=== PATIENT | male | born 1975 | race Caucasian/White ===

== ENCOUNTER 2016-06-29 11:18 | Emergency (ER) | payer OTHER ==
[2016-06-29] MEDS ORDERED: Sodium Chloride 0.9% 10 ML Syringe FLUSH PRN (11:21)
[2016-06-29] MEDS ORDERED: Sodium Chloride 0.9% 2.5 ML Syringe FLUSH PRN (11:21)
[2016-06-29] MEDS ORDERED: Sodium Chloride 0.9% 1,000 ML IV ONE (11:21)
--- NOTE | 2016-06-29 11:34 | EDM.PDOC ---
ED HPI GENERAL MEDICAL PROBLEM - General Time Seen by Provider: 06/29/16 13:14 - History of Present Illness INITIAL COMMENTS - FREE TEXT/NARRATIVE: HISTORY AND PHYSICAL: History of present illness: Patient's 41-year-old male with history of tuh-sozepxw-ngkaxfhdl diabetes we took his metformin this morning and only an apple at wo and then collapsed he did not lose complete consciousness he said he had a visual disturbance at that time he subsequently drank a boost of Mountain Dew and an energy bar on arrival here he is improved he still has generalized weakness blood sugar was 72. Review of systems: As per history of present illness and below otherwise all systems reviewed and negative. Past medical history: As per history of present illness and as reviewed below otherwise noncontributory. Surgical history: As per history of present illness and as reviewed below otherwise noncontributory. Social history: No reported history of drug or alcohol abuse. Family history: As per history of present illness and as reviewed below otherwise noncontributory. Physical exam: HEENT: Atraumatic, normocephalic, pupils reactive, negative for conjunctival pallor or scleral icterus, mucous membranes moist, throat clear, neck supple, nontender, trachea midline. Lungs: Clear to auscultation, breath sounds equal bilaterally, chest nontender. Heart: S1S2, regular, negative for clicks, rubs, or JVD. Abdomen: Soft, nondistended, nontender. Negative for masses or hepatosplenomegaly. Negative for costovertebral tenderness. Pelvis: Stable nontender. Genitourinary: Deferred. Rectal: Deferred. Extremities: Atraumatic, negative for cords or calf pain. Neurovascular unremarkable. Neuro: Awake, alert, oriented. Cranial nerves II through XII unremarkable. Cerebellum unremarkable. Motor and sensory unremarkable throughout. Exam nonfocal. Diagnostics: CBC CMP troponin PT INR chest x-ray EKG CT brain Therapeutics: IV O2 my Impression: #1 generalized weakness #2 history of [id number]-syuenlfhf diabetes #3 probable hypoglycemic episode Definitive disposition and diagnosis as appropriate pending reevaluation and review of above. - Related Data Allergies Allergy/AdvReac Type Severity Reaction Status Date / Time No Known Allergies Allergy Verified 06/29/16 11:27 Home Meds: Home Meds metFORMIN [Glucophage XR] 0 mg PO BIDMEALS 06/29/16 [History] ED ROS GENERAL - Review of Systems Review Of Systems: ROS reveals no pertinent complaints other than HPI. ED EXAM, GENERAL - Physical Exam Exam: See Below (See dictation) Course - Vital Signs Last Recorded V/S: Last Vital Signs Temp 36.8 C 06/29/16 11:30 Pulse 74 06/29/16 11:30 Resp 20 06/29/16 11:30 BP 155/102 H 06/29/16 11:30 Pulse Ox 96 06/29/16 11:30 - Orders/Labs/Meds Orders: Active Orders 24 hr Category Date Time Status Blood Glucose Check, Bedside [RC] ONETIME Care 06/29/16 11:20 Active Cardiac Monitoring [RC] . DIRECTED Care 06/29/16 11:20 Active EKG Documentation Completion [RC] STAT Care 06/29/16 11:20 Active Oxygen Therapy, ED [RC] ASDIRECTED Care 06/29/16 11:20 Active Pulse Oximetry [RC] ASDIRECTED Care 06/29/16 11:20 Active Chest 1V Frontal [CR] Stat Exams 06/29/16 11:37 Taken Head wo Cont [CT] Stat Exams 06/29/16 11:21 Taken Sodium Chloride 0.9% [Saline Flush] Med 06/29/16 11:21 Active 10 ml FLUSH ASDIRECTED PRN Sodium Chloride 0.9% [Saline Flush] Med 06/29/16 11:21 Active 2.5 ml FLUSH ASDIRECTED PRN Saline Lock Insert [OM.PC] Stat Oth 06/29/16 11:20 Ordered Medication Orders Sodium Chloride (Saline Flush) 10 ml FLUSH ASDIRECTED PRN PRN Reason: Keep Vein Open Sodium Chloride (Saline Flush) 2.5 ml FLUSH ASDIRECTED PRN PRN Reason: Keep Vein Open Labs: Laboratory Tests 06/29/16 06/29/16 06/29/16 Range/Units 11:20 11:20 11:20 WBC 7.05 (4.0-11.0) K/uL RBC 5.24 (4.50-5.90) M/uL Hgb 15.4 (13.0-17.0) g/dL Hct 46.4 (38.0-50.0) % MCV 88.5 (80.0-98.0) fL MCH 29.4 (27.0-32.0) pg MCHC 33.2 (31.0-37.0) g/dL RDW Std Deviation 44.6 (28.0-62.0) fl RDW Coeff of Ilir 14 (11.0-15.0) % Plt Count 362 (150-400) K/uL MPV 10.50 (7.40-12.00) fL Neut % (Auto) 43.5 L (48.0-80.0) % Lymph % (Auto) 49.5 H (16.0-40.0) % [place] % (Auto) 5.8 (0.0-15.0) % Eos % (Auto) 1.1 (0.0-7.0) % Baso % (Auto) 0.1 (0.0-1.5) % Neut # (Auto) 3.1 (1.4-5.7) K/uL Lymph # (Auto) 3.5 H (0.6-2.4) K/uL [place] # (Auto) 0.4 (0.0-0.8) K/uL Eos # (Auto) 0.1 (0.0-0.7) K/uL Baso # (Auto) 0.0 (0.0-0.1) K/uL Nucleated RBC % 0.0 /100WBC Nucleated RBCs # 0 K/uL INR 0.94 (0.86-1.11) Sodium 141 (136-146) mmol/L Potassium 4.4 (3.5-5.1) mmol/L Chloride 112 H (98-110) mmol/L Carbon Dioxide 17 L (21-31) mmol/L BUN 10 (6.0-23.0) mg/dL Creatinine 0.8 (0.6-1.5) mg/dL Est Cr Clr Drug Dosing TNP Estimated GFR (MDRD) > 60.0 ml/min Glucose 100 (60-110) mg/dL POC Glucose (60-110) mg/dL Calcium 9.5 (8.8-10.8) mg/dL Total Bilirubin 0.4 (0.1-1.5) mg/dL AST 29 (5-40) IU/L ALT 49 (8-54) IU/L Alkaline Phosphatase 47 (40-150) Troponin I (0.0-0.29) NG/ML Total Protein 7.4 (6.0-8.0) g/dL Albumin 4.1 (3.5-5.0) g/dL Globulin 3.3 (2.0-3.5) g/dL Albumin/Globulin Ratio 1.2 L (1.3-2.8) Urine Color Urine Appearance Urine pH (5.0-8.0) Ur Specific [place] (1.001-1.035) Urine Protein (NEGATIVE) mg/dL Urine Glucose (UA) (NEGATIVE) mg/dL Urine Ketones (NEGATIVE) mg/dL Urine Occult Blood (NEGATIVE) Urine Nitrite (NEGATIVE) Urine Bilirubin (NEGATIVE) Urine Urobilinogen (<2.0) EU/dL Ur Leukocyte Esterase (NEGATIVE) Urine RBC (0-2/HPF) Urine WBC (0-5/HPF) Ur Epithelial Cells (NONE-FEW) Urine Bacteria (NEGATIVE) Urine Mucus (NONE-MOD) Urine Opiates Screen (NEGATIVE) Ur Oxycodone Screen (NEGATIVE) Urine Methadone Screen (NEGATIVE) Ur Barbiturates Screen (NEGATIVE) Ur Phencyclidine Scrn (NEGATIVE) Ur Amphetamine Screen (NEGATIVE) U Methamphetamines Scrn (NEGATIVE) U Benzodiazepines Scrn (NEGATIVE) U Cocaine Metab Screen (NEGATIVE) U Marijuana (THC) Screen (NEGATIVE) 06/29/16 06/29/16 06/29/16 Range/Units 11:20 12:01 12:01 WBC (4.0-11.0) K/uL RBC (4.50-5.90) M/uL Hgb (13.0-17.0) g/dL Hct (38.0-50.0) % MCV (80.0-98.0) fL MCH (27.0-32.0) pg MCHC (31.0-37.0) g/dL RDW Std Deviation (28.0-62.0) fl RDW Coeff of Ilir (11.0-15.0) % Plt Count (150-400) K/uL MPV (7.40-12.00) fL Neut % (Auto) (48.0-80.0) % Lymph % (Auto) (16.0-40.0) % [place] % (Auto) (0.0-15.0) % Eos % (Auto) (0.0-7.0) % Baso % (Auto) (0.0-1.5) % Neut # (Auto) (1.4-5.7) K/uL Lymph # (Auto) (0.6-2.4) K/uL [place] # (Auto) (0.0-0.8) K/uL Eos # (Auto) (0.0-0.7) K/uL Baso # (Auto) (0.0-0.1) K/uL Nucleated RBC % /100WBC Nucleated RBCs # K/uL INR (0.86-1.11) Sodium (136-146) mmol/L Potassium (3.5-5.1) mmol/L Chloride (98-110) mmol/L Carbon Dioxide (21-31) mmol/L BUN (6.0-23.0) mg/dL Creatinine (0.6-1.5) mg/dL Est Cr Clr Drug Dosing Estimated GFR (MDRD) ml/min Glucose (60-110) mg/dL POC Glucose (60-110) mg/dL Calcium (8.8-10.8) mg/dL Total Bilirubin (0.1-1.5) mg/dL AST (5-40) IU/L ALT (8-54) IU/L Alkaline Phosphatase (40-150) Troponin I < 0.10 (0.0-0.29) NG/ML Total Protein (6.0-8.0) g/dL Albumin (3.5-5.0) g/dL Globulin (2.0-3.5) g/dL Albumin/Globulin Ratio (1.3-2.8) Urine Color YELLOW Urine Appearance CLEAR Urine pH 5.5 (5.0-8.0) Ur Specific [place] >= 1.030 (1.001-1.035) Urine Protein NEGATIVE (NEGATIVE) mg/dL Urine Glucose (UA) NEGATIVE (NEGATIVE) mg/dL Urine Ketones NEGATIVE (NEGATIVE) mg/dL Urine Occult Blood NEGATIVE (NEGATIVE) Urine Nitrite NEGATIVE (NEGATIVE) Urine Bilirubin NEGATIVE (NEGATIVE) Urine Urobilinogen 0.2 (<2.0) EU/dL Ur Leukocyte Esterase NEGATIVE (NEGATIVE) Urine RBC NONE SEEN (0-2/HPF) Urine WBC 0-2 (0-5/HPF) Ur Epithelial Cells FEW (NONE-FEW) Urine Bacteria NOT SEEN (NEGATIVE) Urine Mucus MODERATE (NONE-MOD) Urine Opiates Screen NEGATIVE (NEGATIVE) Ur Oxycodone Screen NEGATIVE (NEGATIVE) Urine Methadone Screen NEGATIVE (NEGATIVE) Ur Barbiturates Screen NEGATIVE (NEGATIVE) Ur Phencyclidine Scrn NEGATIVE (NEGATIVE) Ur Amphetamine Screen NEGATIVE (NEGATIVE) U Methamphetamines Scrn NEGATIVE (NEGATIVE) U Benzodiazepines Scrn NEGATIVE (NEGATIVE) U Cocaine Metab Screen NEGATIVE (NEGATIVE) U Marijuana (THC) Screen NEGATIVE (NEGATIVE) 06/29/16 Range/Units 13:11 WBC (4.0-11.0) K/uL RBC (4.50-5.90) M/uL Hgb (13.0-17.0) g/dL Hct (38.0-50.0) % MCV (80.0-98.0) fL MCH (27.0-32.0) pg MCHC (31.0-37.0) g/dL RDW Std Deviation (28.0-62.0) fl RDW Coeff of Ilir (11.0-15.0) % Plt Count (150-400) K/uL MPV (7.40-12.00) fL Neut % (Auto) (48.0-80.0) % Lymph % (Auto) (16.0-40.0) % [place] % (Auto) (0.0-15.0) % Eos % (Auto) (0.0-7.0) % Baso % (Auto) (0.0-1.5) % Neut # (Auto) (1.4-5.7) K/uL Lymph # (Auto) (0.6-2.4) K/uL [place] # (Auto) (0.0-0.8) K/uL Eos # (Auto) (0.0-0.7) K/uL Baso # (Auto) (0.0-0.1) K/uL Nucleated RBC % /100WBC Nucleated RBCs # K/uL INR (0.86-1.11) Sodium (136-146) mmol/L Potassium (3.5-5.1) mmol/L Chloride (98-110) mmol/L Carbon Dioxide (21-31) mmol/L BUN (6.0-23.0) mg/dL Creatinine (0.6-1.5) mg/dL Est Cr Clr Drug Dosing Estimated GFR (MDRD) ml/min Glucose (60-110) mg/dL POC Glucose 91 (60-110) mg/dL Calcium (8.8-10.8) mg/dL Total Bilirubin (0.1-1.5) mg/dL AST (5-40) IU/L ALT (8-54) IU/L Alkaline Phosphatase (40-150) Troponin I (0.0-0.29) NG/ML Total Protein (6.0-8.0) g/dL Albumin (3.5-5.0) g/dL Globulin (2.0-3.5) g/dL Albumin/Globulin Ratio (1.3-2.8) Urine Color Urine Appearance Urine pH (5.0-8.0) Ur Specific [place] (1.001-1.035) Urine Protein (NEGATIVE) mg/dL Urine Glucose (UA) (NEGATIVE) mg/dL Urine Ketones (NEGATIVE) mg/dL Urine Occult Blood (NEGATIVE) Urine Nitrite (NEGATIVE) Urine Bilirubin (NEGATIVE) Urine Urobilinogen (<2.0) EU/dL Ur Leukocyte Esterase (NEGATIVE) Urine RBC (0-2/HPF) Urine WBC (0-5/HPF) Ur Epithelial Cells (NONE-FEW) Urine Bacteria (NEGATIVE) Urine Mucus (NONE-MOD) Urine Opiates Screen (NEGATIVE) Ur Oxycodone Screen (NEGATIVE) Urine Methadone Screen (NEGATIVE) Ur Barbiturates Screen (NEGATIVE) Ur Phencyclidine Scrn (NEGATIVE) Ur Amphetamine Screen (NEGATIVE) U Methamphetamines Scrn (NEGATIVE) U Benzodiazepines Scrn (NEGATIVE) U Cocaine Metab Screen (NEGATIVE) U Marijuana (THC) Screen (NEGATIVE) Meds: Medications Generic Name Dose Route Start Last Admin Trade Name Freq PRN Reason Stop Dose Admin Sodium Chloride 10 ml 06/29/16 11:21 Saline Flush FLUSH ASDIRECTED PRN Keep Vein Open Sodium Chloride 2.5 ml 06/29/16 11:21 Saline Flush FLUSH ASDIRECTED PRN Keep Vein Open Discontinued Medications Generic Name Dose Route Start Last Admin Trade Name Freq PRN Reason Stop Dose Admin Acetaminophen 1,000 mg 06/29/16 12:30 06/29/16 12:36 Tylenol Extra Strength PO 06/29/16 12:31 1,000 mg ONETIME ONE Administration Sodium Chloride 1,000 mls @ 999 mls/hr 06/29/16 11:21 06/29/16 11:50 Normal Saline IV 06/29/16 12:21 999 mls/hr STAT ONE Administration Departure - Departure Time of Disposition: 13:14 Disposition: Home, Self-Care 01 Condition: good Clinical Impression: Hypoglycemia Additional Instructions: The following information is given to patients seen in the emergency department who are being discharged to home. This information is to outline your options for follow-up care. We provide all patients seen in our emergency department with a follow-up referral. The need for follow-up, as well as the timing and circumstances, are variable depending upon the specifics of your emergency department visit. If you don't have a primary care physician on staff, we will provide you with a referral. We always advise you to contact your personal physician following an emergency department visit to inform them of the circumstance of the visit and for follow-up with them and/or the need for any referrals to a consulting specialist. The emergency department will also refer you to a specialist when appropriate. This referral assures that you have the opportunity for followup care with a specialist. All of these measure are taken in an effort to provide you with optimal care, which includes your followup. Under all circumstances we always encourage you to contact your private physician who remains a resource for coordinating your care. When calling for followup care, please make the office aware that this follow-up is from your recent emergency room visit. If for any reason you are refused follow-up, please contact the [facility] emergency department at and asked to speak to the emergency department charge nurse. Hold metformin as discussed and to followup with primary medical doctor he regularly return as needed as discussed - My Orders Last 24 Hours: My Active Orders 06/29/16 11:20 Blood Glucose Check, Bedside [RC] ONETIME Cardiac Monitoring [RC] . DIRECTED EKG Documentation Completion [RC] STAT Oxygen Therapy, ED [RC] ASDIRECTED Pulse Oximetry [RC] ASDIRECTED Saline Lock Insert [OM.PC] Stat 06/29/16 11:21 Head wo Cont [CT] Stat Sodium Chloride 0.9% [Saline Flush] 10 ml FLUSH ASDIRECTED PRN Sodium Chloride 0.9% [Saline Flush] 2.5 ml FLUSH ASDIRECTED PRN 06/29/16 11:37 Chest 1V Frontal [CR] Stat - Assessment/Plan Last 24 Hours: My Active Orders 06/29/16 11:20 Blood Glucose Check, Bedside [RC] ONETIME Cardiac Monitoring [RC] . DIRECTED EKG Documentation Completion [RC] STAT Oxygen Therapy, ED [RC] ASDIRECTED Pulse Oximetry [RC] ASDIRECTED Saline Lock Insert [OM.PC] Stat 06/29/16 11:21 Head wo Cont [CT] Stat Sodium Chloride 0.9% [Saline Flush] 10 ml FLUSH ASDIRECTED PRN Sodium Chloride 0.9% [Saline Flush] 2.5 ml FLUSH ASDIRECTED PRN 06/29/16 11:37 Chest 1V Frontal [CR] Stat
[2016-06-29 12:02] LABS: CHLORIDE,CL 112 mmol/L (98-110); SODIUM,NA 141 mmol/L (136-146)
[2016-06-29] MEDS ORDERED: Acetaminophen 325 MG/10.15 ML ML PO STA (12:21)
[2016-06-29] MEDS ORDERED: Acetaminophen 500 MG Tab PO ONE (12:30)
[2016-06-29 13:30] VITALS: BP 137/94
--- NOTE | 2016-06-30 18:00 | CT ---
EXAM DATE: 06/29/16 PATIENT'S AGE: 41 Patient: ILIANA ALMANZAR Facility: [place], [place] Site . Site : 1975 Study: CT Head STROKE PROTOCOL [id number]/29/2017 11:34:38 AM Ordering Physician: Doctor Tate Final Report: INDICATION: Weakness. Stroke protocol. Technique: CT head without IV contrast. Findings: No acute intracranial hemorrhage, edema, or mass effect. Small prevascular space in the left lateral thalamus/temporal region. Remainder negative. Findings called to referring physician. Impression: No acute intracranial disease. Dictated by Mohamud Phipps MD @ Jun 29 2016 11:40AM (Electronic Signature) Report Signed by Proxy. GIN
--- NOTE | 2016-06-30 18:01 | CR ---
EXAM DATE: 06/29/16 PATIENT'S AGE: 41 Patient: ILIANA ALMANZAR Facility: [place], [place] Site . Site : 1975 Study: XRay Chest [id number]/29/2017 11:43:33 AM Ordering Physician: Viktor Patel Final Report: INDICATION: Dizziness. Technique: Portable chest. Findings: The heart and mediastinum are normal in size. The pulmonary vessels are normal. The lungs are clear. No pleural fluid. No acute bony abnormalities. Impression: No acute chest disease. Dictated by Estefania Boyer MD @ Jun 29 2016 11:48AM (Electronic Signature) Report Signed by Proxy. [facility] MEDICAL CENTERAndrew
== END 2016-06-29 13:21 | disposition home or self-care (01) ==
LOC: MW.ED 11:18
DX: E11.649 Type 2 diabetes mellitus with hypoglycemia without coma (principal); R53.1 Weakness; R55 Syncope and collapse
CPT/HCPCS: 36415; 70450; 71010; 80053; 80305; 81001; 82962; 84484; 85025; 85610; 93005; 96360; 99285; A9270; J7040; 99283